=== PATIENT | female | born 1975 | race Caucasian/White ===

== ENCOUNTER 2024-08-22 13:59 | Emergency (ER) | payer MEDICARE ==
[~2024-08-22] VITALS: Ht 167.6 cm; Wt 113.5 kg
[2024-08-22 14:16] VITALS: BP 155/91; PULSE 92; O2SAT 98
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
--- NOTE | 2024-08-22 14:56 | RADIOLOGY REPORT ---
CLINICAL INDICATION: HIP PAIN TECHNIQUE: 1 radiographic views of the pelvis and 2 views of the right hip were obtained. Comparison: None FINDINGS/IMPRESSION: There is no evidence of acute fracture or dislocation. The visualized joint space is well maintained. The alignment is anatomical. There is no radiopaque foreign body.
[2024-08-22] MEDS: acetaminophen 325mg tablet PO ONE (15:35)
[2024-08-22 15:53] VITALS: RESP 16
[2024-08-22] MEDS: ketorolac trometh 15mg/ml vial 15 MG/ML ML IM ONE (15:53)
[2024-08-22] MEDS: cyclobenzaprine 10mg tablet PO ONE (15:54)
--- NOTE | 2024-08-22 16:18 | RADIOLOGY REPORT ---
CLINICAL INDICATION: RT.KNEE PAIN TECHNIQUE: DI KNEE, COMP 4 VW MIN Comparison: None FINDINGS/IMPRESSION: : There is no evidence of acute fracture or dislocation. Soft tissues are unremarkable.
--- NOTE | 2024-08-22 16:18 | RADIOLOGY REPORT ---
CLINICAL INDICATION: RT.ANKLE PAIN TECHNIQUE: DI ANKLE, COMPLETE(3VW MIN) Comparison: None FINDINGS/IMPRESSION: : There is no evidence of acute fracture or dislocation. Soft tissues are unremarkable. 0.8 cm plantar calcaneal spur
[2024-08-22] MEDS ORDERED: CYCL-1 PO (16:47)
[2024-08-22 16:54] VITALS: TEMP 98.8
== END 2024-08-22 16:56 | disposition home or self-care (01) ==
LOC: ER 14:01
DX: M25.551 Pain in right hip (principal); M25.561 Pain in right knee; M54.2 Cervicalgia; Z88.1 Allergy status to other antibiotic agents; Z91.040 Latex allergy status; V89.2XXA Person injured in unspecified motor-vehicle accident, traffic, initial encounter; Y93.89 Activity, other specified; Y92.89 Other specified places as the place of occurrence of the external cause; Y99.8 Other external cause status
CPT/HCPCS: 73502; 73564; 73610; 96372; 99284; J1885